=== PATIENT | male | born 1970 | race Caucasian/White ===

== ENCOUNTER 2017-10-16 12:18 | Inpatient (IN) | payer SELFPAY ==
[2017-10-16] MEDS ORDERED: Sodium Chloride 0.9% 1,000 ML IV ONE (12:20)
[2017-10-16] MEDS ORDERED: Morphine 4 MG/ML Syringe IVPUSH ONE ×2 (12:20→23:51)
[2017-10-16] MEDS ORDERED: Ondansetron 4 MG/2 ML SDV IVPUSH ONE (12:20)
[2017-10-16] MEDS ORDERED: Morphine 4 MG/ML Syringe ONE (12:21)
[2017-10-16] MEDS ORDERED: Ondansetron 4 MG/2 ML SDV ONE (12:21)
[2017-10-16] MEDS ORDERED: Iopamidol 755 MG/ML 500 ML Multipack Bottle IVPUSH STA (12:27)
--- NOTE | 2017-10-16 12:27 | EDM.PDOC ---
ED HPI GENERAL MEDICAL PROBLEM - General Stated Complaint: WORK RELATED BACK INJURY Time Seen by Provider: 10/16/17 12:22 Source of Information: Reports: Patient History Limitations: Reports: No Limitations - History of Present Illness INITIAL COMMENTS - FREE TEXT/NARRATIVE: HISTORY AND PHYSICAL: History of present illness: Trauma alert was called upon arrival to the emergency department by triage. Patient presents to the emergency room by either vehicle with complaints of neck and right chest wall pain after falling approximately 10 feet off of a roof. States he landed on his right side but did not lose consciousness. He says witnessed by a coworker whom confirms that. The coworker states that the patient did appear confused was able to get up from the ground with assistance and ambulate to the vehicle. Upon arrival the patient does have a c-collar which was applied by the triage nurse. The patient refuses to lie flat on the cot and is sitting in a high Gutierrez position. Patient is alert and oriented. Complains of right chest wall pain, stating "I punctured my lung... I have broken ribs". Patient is able to breathe easily and the high Gutierrez position, states that it hurts to take a deep breath and "I can't breathe off the right side". Review of systems: As per history of present illness and below otherwise all systems reviewed and negative. Past medical history: As per history of present illness and as reviewed below otherwise noncontributory. Surgical history: As per history of present illness and as reviewed below otherwise noncontributory. Social history: No reported history of drug or alcohol abuse. Family history: As per history of present illness and as reviewed below otherwise noncontributory. Physical exam: Gen.: Well-developed and well-nourished 46-year-old male. Alert and oriented. Speaking in full sentences. Appears in mild distress, though nontoxic-appearing. HEENT: Normocephalic, pupils are 3 mm bilaterally and reactive to light, negative for conjunctival pallor or scleral icterus, mucous membranes moist and intact, throat clear, neck supple, no lymphadenopathy, mild tenderness to C- spine upon palpation, trachea midline. C-collar is on. Crepitus or discomfort when palpating the scalp. Skin is intact. Lungs: Diminished to right lower quadrant, chest wall tenderness to the right antecubital/anterior posterior wall. Healed linear scars noted to the right chest wall Heart: S1S2, regular rate and rhythm with no overt murmurs. Abdomen: Soft, nondistended, nontender. Negative for masses or hepatosplenomegaly. Negative for costovertebral tenderness. Long linear scar noted above the right hip. Pelvis: Stable nontender. Genitourinary: Deferred. Rectal: Good rectal tone (done with a location manager) Back: Mild cervical tenderness with palpation (c-collar on), no pin point vertebral tenderness, crepitus, obvious deformities or step-offs to the cervical spine or back. Extremities: Moves all extremities per self, pain with range of motion and palpation of the right shoulder and right hip, denies any numbness or tingling to the upper or lower extremities, strong radial and pedal pulses bilaterally, Neurovascular unremarkable. Skin: Intact, warm, dry. No rashes or lesions noted. Neuro: Awake, alert, oriented. Cranial nerves II through XII unremarkable. Cerebellum unremarkable. Motor and sensory unremarkable throughout. Exam nonfocal. Patient was able to lay in a supine position with assistance of staff. Patient states that it was "pulling on" his right chest wall. Vital signs remained stable. Oxygen saturation is 96% on room air. Nursing staff is accompanying the patient for going down to CT at this time. 1310- Cervical spine shows mild degenerative changes, no acute fractures. Head CT is normal. C-collar was removed at this time. 1320- CT of the chest and abdomen show a pulmonary contusion with minimal right- sided pneumothorax. There are nondisplaced rib fractures on the right side rib # 2 through #9. No evidence of solid organ injury. 1327- Dr. Caicedo was consulted at this time. Diagnostics: CBC, CMP, UA, CT head, CT cervical spine, CT chest with contrast, CT abdomen and pelvis with contrast, x-ray right shoulder Therapeutics: IV fluid, Zofran, morphine, toradol Impression: #1 Traumatic fall #2 Right-sided nondisplaced rib fractures #3 Minimal sided pneumothorax #4 Chest wall contusion Plan: 1. Admit for observation under Dr. Caicedo. Definitive disposition and diagnosis as appropriate pending reevaluation and review of above. Onset: Today Duration: Minutes: Location: Reports: Neck, Chest, Upper Extremity, Right, Lower Extremity, Right Improves with: Reports: Other (Sitting in high Gutierrez's position, shallow breathing) Worsens with: Reports: Breathing (Deep breaths), Movement Neck/Back/Right Shoulder Pain Score (Numeric/FACES): 4 - Related Data Allergies Allergy/AdvReac Type Severity Reaction Status Date / Time No Known Allergies Allergy Verified 10/16/17 13:09 Home Meds: Home Meds . [No Known Home Meds] 10/16/17 [History] Review of Systems - Review of Systems Review Of Systems: ROS reveals no pertinent complaints other than HPI. ED EXAM, GENERAL - Physical Exam Exam: See Below (See dictation) Course - Vital Signs Last Recorded V/S: Last Vital Signs Temp 97.0 F 10/16/17 12:18 Pulse 73 10/16/17 14:35 Resp 22 H 10/16/17 14:35 BP 140/71 10/16/17 14:35 Pulse Ox 98 10/16/17 14:35 - Orders/Labs/Meds Orders: Active Orders 24 hr Category Date Time Status Admission Status [Patient Status] [ADT] Stat ADT 10/16/17 13:13 Active Labs: Laboratory Tests 10/16/17 10/16/17 10/16/17 Range/Units 12:20 12:20 14:27 WBC 8.12 (4.0-11.0) K/uL RBC 5.46 (4.50-5.90) M/uL Hgb 17.0 (13.0-17.0) g/dL Hct 49.0 (38.0-50.0) % MCV 89.7 (80.0-98.0) fL MCH 31.1 (27.0-32.0) pg MCHC 34.7 (31.0-37.0) g/dL RDW Std Deviation 43.2 (28.0-62.0) fl RDW Coeff of Ashvin 13 (11.0-15.0) % Plt Count 211 (150-400) K/uL MPV 10.20 (7.40-12.00) fL Neut % (Auto) 50.4 (48.0-80.0) % Lymph % (Auto) 40.0 (16.0-40.0) % [place] % (Auto) 6.9 (0.0-15.0) % Eos % (Auto) 2.2 (0.0-7.0) % Baso % (Auto) 0.5 (0.0-1.5) % Neut # (Auto) 4.1 (1.4-5.7) K/uL Lymph # (Auto) 3.3 H (0.6-2.4) K/uL Atlantic # (Auto) 0.6 (0.0-0.8) K/uL Eos # (Auto) 0.2 (0.0-0.7) K/uL Baso # (Auto) 0.0 (0.0-0.1) K/uL Nucleated RBC % 0.0 /100WBC Nucleated RBCs # 0 K/uL Sodium 137 (136-146) mmol/L Potassium 4.3 (3.5-5.1) mmol/L Chloride 103 (98-110) mmol/L Carbon Dioxide 22 (21-31) mmol/L BUN 16 (6.0-23.0) mg/dL Creatinine 0.9 (0.6-1.5) mg/dL Est Cr Clr Drug Dosing TNP Estimated GFR (MDRD) > 60.0 ml/min Glucose 120 H (60-110) mg/dL Calcium 9.4 (8.8-10.8) mg/dL Total Bilirubin 0.7 (0.1-1.5) mg/dL AST 80 H (5-40) IU/L ALT 80 H (8-54) IU/L Alkaline Phosphatase 61 (40-150) Total Protein 7.5 (6.0-8.0) g/dL Albumin 4.4 (3.5-5.0) g/dL Globulin 3.1 (2.0-3.5) g/dL Albumin/Globulin Ratio 1.4 (1.3-2.8) Urine Color YELLOW Urine Appearance CLEAR Urine pH 5.5 (5.0-8.0) Ur Specific [place] 1.020 (1.001-1.035) Urine Protein 30 (NEGATIVE) mg/dL Urine Glucose (UA) NEGATIVE (NEGATIVE) mg/dL Urine Ketones 15 H (NEGATIVE) mg/dL Urine Occult Blood TRACE-INTACT (NEGATIVE) Urine Nitrite NEGATIVE (NEGATIVE) Urine Bilirubin NEGATIVE (NEGATIVE) Urine Urobilinogen 0.2 (<2.0) EU/dL Ur Leukocyte Esterase NEGATIVE (NEGATIVE) Urine RBC 0-1 (0-2/HPF) Urine WBC 0-1 (0-5/HPF) Ur Epithelial Cells RARE (NONE-FEW) Urine Bacteria RARE (NEGATIVE) Meds: Medications Discontinued Medications Generic Name Dose Route Start Last Admin Trade Name Nat PRN Reason Stop Dose Admin Sodium Chloride 1,000 mls @ 999 mls/hr 10/16/17 12:20 Normal Saline IV 10/16/17 13:20 STAT ONE Iopamidol 100 ml 10/16/17 12:27 10/16/17 12:42 Isovue Multipack-370 (76%) IVPUSH 10/16/17 12:28 100 ml ONETIME STA Administration Ketorolac Tromethamine 30 mg 10/16/17 13:02 Toradol IVPUSH 10/16/17 13:03 ONETIME ONE Morphine Sulfate 4 mg 10/16/17 12:20 Morphine IVPUSH 10/16/17 12:21 ONETIME ONE Morphine Sulfate Confirm 10/16/17 12:21 Morphine Administered 10/16/17 12:22 Dose 4 mg .ROUTE .STK-MED ONE Ondansetron HCl 4 mg 10/16/17 12:20 Zofran IVPUSH 10/16/17 12:21 ONETIME ONE Ondansetron HCl Confirm 10/16/17 12:21 Zofran Administered 10/16/17 12:22 Dose 4 mg .ROUTE .STK-MED ONE Departure - Departure Time of Disposition: 15:18 Disposition: Refer to Observation Clinical Impression: Pneumothorax, right, Trauma Ribs, multiple fractures Qualifiers: Encounter type: initial encounter Fracture type: closed Laterality: right Qualified Code(s): S22.41XA - Multiple fractures of ribs, right side, initial encounter for closed fracture Contusion Qualifiers: Encounter type: initial encounter Contusion area: thoracic wall Contusion of thoracic wall detail: unspecified area of thoracic wall Qualified Code(s): S20.20XA - Contusion of thorax, unspecified, initial encounter - Discharge Information - My Orders Last 24 Hours: My Active Orders 10/16/17 13:13 Admission Status [Patient Status] [ADT] Stat - Assessment/Plan Last 24 Hours: My Active Orders 10/16/17 13:13 Admission Status [Patient Status] [ADT] Stat
[2017-10-16] MEDS ORDERED: Ketorolac 30 MG/ML SDV IVPUSH ONE (13:02)
--- NOTE | 2017-10-16 13:02 | CT ---
EXAMINATION: Non contrast CT head. Coronal and sagittal reformats. HISTORY: Pain FINDINGS: No evidence of intra or extra axial hemorrhage, mass, midline shift, hydrocephalus or edema. No hypoattenuation changes in the major vascular territories to suggest acute infarct. No abnormal intracranial calcifications are detected. No evidence of substantial vascular calcificat ions. There is mucosal thickening and small mucous retention cysts within the maxillary sinuses. Mastoid ai r cells are clear. The orbits and globes are symmetric. Pituitary fossa appears unremarkable. Calvarium is intact. No evidence of skull fracture. IMPRESSION: No acute intracranial findings.
[2017-10-16 13:04] LABS: CHLORIDE,CL 103 mmol/L (98-110); SODIUM,NA 137 mmol/L (136-146)
--- NOTE | 2017-10-16 13:05 | CT ---
EXAMINATION: CT cervical spine HISTORY: Pain COMPARISON: None TECHNIQUE: Axial CT images obtained through the cervical spine without contrast. Coronal and sagittal reconstructions obtained. FINDINGS: The cervical spinal alignment is normal. The vertebral body heights and disc spaces appear well-maintained. There is no fracture or dislocation. Bone mineralization appears normal. Mild margin al osteophytes noted. The prevertebral soft tissues are normal. Visualized lung apices are clear. IMPRESSION: 1. Mild degenerative changes without acute findings.
--- NOTE | 2017-10-16 13:19 | CT ---
CT of the chest, abdomen and pelvis with contrast. HISTORY: Pain TECHNIQUE: Axial CT images were obtained of the chest, abdomen and pelvis following administration of 100 mL of Isovue-370 in left antecubital fossa without complication. Coronal and sagittal reconstruc tions obtained. FINDINGS: Chest: There is a minimal right-sided pneumothorax with a few nondisplaced right rib fractures extend ing from at least the second through ninth right ribs. Mild groundglass opacities noted along the rig ht posterior pleural surface, likely a minimal pulmonary contusion. No evidence of a significant pleu ral effusion. The heart is normal in size without a pericardial effusion. Thoracic aorta is normal in caliber. The main pulmonary arteries are patent. Small subcutaneous hematoma noted extending from th e right axillary region and to the subclavian region. Central airways are clear. Abdomen: Trace focal fatty infiltration near the falciform ligament otherwise the liver appears intac t. The gallbladder, adrenal glands, and pancreas appear normal. Cholecystectomy. No bulky retroperito jessi lymphadenopathy or abdominal ascites. The kidneys enhance and function symmetrically without evidence of obstructive uropathy. Pelvis: The large and small bowel are normal in caliber without evidence of obstruction. No focal per icolonic inflammation or stranding. The appendix is normal. No significant free pelvic fluid. The uri nary bladder is normal. Motion obscures evaluation of the pelvis. Probable old medial left clavicle fracture changes. The right third fourth ribs are also fractured po steriorly. The thoracic and lumbar vertebra appear intact. IMPRESSION: 1. Multiple nondisplaced right-sided rib fractures noted with a minimal right pneumothorax. 2. Trace right pulmonary contusion. 3. No evidence of a solid organ injury within the abdomen or pelvis.
[2017-10-16] MEDS ORDERED: Acetaminophen 325 MG Tab PO PRN (15:35)
[2017-10-16] MEDS: HYDROmorphone 2 MG Tab PO PRN ×2 (16:03→19:18)
[2017-10-16] MEDS: Lactated Ringers 1,000 ML IV SCH (16:04)
[2017-10-16] MEDS: Acetaminophen/oxyCODONE 325-5 MG Tab PO PRN (21:56)
[2017-10-16] MEDS ORDERED: Lidocaine 2% 5 ML SDV ONE (23:33)
--- NOTE | 2017-10-16 23:42 | PCM.SN ---
- Free Text/Narrative Note: repeat cxr, and chest ct, R side ptx increased in size, and pt co difficult to breath and shallow breathing, and now there is subcutaneous emphasema; d/w pt, would put in a chest tube to the right; r/b dw pt, pt concurs and proceed; consent in chart
[2017-10-16] MEDS ORDERED: Morphine 10 MG/ML Syringe ONE (23:55)
[2017-10-17] MEDS ORDERED: Morphine 10 MG/ML Syringe IVPUSH ONE
[2017-10-17] MEDS ORDERED: Lidocaine 1% with EPINEPHrine 1:100,000 10 ML MDV INJECT ONE
[2017-10-17] MEDS ORDERED: Morphine 2 MG/ML Syringe IVPUSH ONE ×2 (00:30→04:29)
[2017-10-17] MEDS ORDERED: Morphine 4 MG/ML Syringe IVPUSH ONE (00:30)
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
--- NOTE | 2017-10-17 02:22 | PCM.OPNOTE ---
- General Post-Op/Procedure Note Date of Surgery/Procedure: 10/17/17 Operative Procedure(s): chest tube inserted r chest Findings: 60 cc dark blood evacuated; cxr trace ptx, and ct pending; [id number] Pre Op Diagnosis: r ptx Post-Op Diagnosis: Same Primary Surgeon: Brigido Caicedo Complications: None Condition: Good
[2017-10-17] MEDS: HYDROmorphone 2 MG Tab PO PRN ×2 (03:00→08:23)
--- NOTE | 2017-10-17 03:42 | OR ---
SURGEON: Brigido Caicedo MD DATE OF PROCEDURE: 10/17/2017 PREOPERATIVE DIAGNOSIS: Right-sided pneumothorax. POSTOPERATIVE DIAGNOSIS: Right-sided pneumothorax. PROCEDURE PERFORMED: Chest tube placement to the right and 20-Khmer chest tube was placed. PROCEDURE IN DETAIL: The patient's procedure was performed in ICU with conscious sedation. After informed consent obtained and the patient was slightly rotated to the left decubitus position, left-side down and right-side up, local anesthetic was given, and also IV morphine was administered and using palpation of the rib on the nipple level on the midaxillary line was used and after giving local anesthetic, using an #11 blade, incision was made, and followed with placement of the 28-Khmer chest tube into the pleural cavity. Encountered large hematoma probably from the broken rib and also large of the patient's body habitus and it is almost like a 1-inch or more of subcutaneous tissue. Once the tube was in, the anchor was secured to the skin using a 2-0 silk and the appropriate dressing was given and the patient was then waiting for the post chest x-ray. IAIN / PARADISE /[id number]
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
[2017-10-17] MEDS: Acetaminophen/oxyCODONE 325-5 MG Tab PO PRN ×2 (05:40→10:32)
[2017-10-17] MEDS ORDERED: Morphine 2 MG/ML Syringe IVPUSH PRN (06:04)
[2017-10-17] MEDS: Lactated Ringers 1,000 ML IV SCH (08:25)
[2017-10-17] MEDS ORDERED: Pantoprazole 40 MG Vial IVPUSH ONE (09:14)
--- NOTE | 2017-10-17 10:02 | CR ---
EXAMINATION: Two-view chest (PA and Lateral views). HISTORY: Follow-up. FINDINGS: The trachea is midline. There is a right-sided chest tube noted with tip in fairly stable position wi thin the mid chest. There is made decreasing right-sided pneumothorax now measuring 9 mm at the apex. Atelectasis is noted bilaterally. Previously described rib fractures are not well characterized. Osseous structures otherwise appear unremarkable. IMPRESSION: 1. Right-sided chest tube in grossly stable positioning with right apical pneumothorax.
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
--- NOTE | 2017-10-17 11:38 | CR ---
EXAM DATE: 10/17/17 PATIENT'S AGE: 46 Patient: SUHAIL NUNO Facility: [place], [place] Site . Site : 1970 Study: XRay Chest [id number]/13/2017 12:54:41 AM Ordering Physician: Marifer Fofana Final Report: INDICATION: Status post chest tube placement. TECHNIQUE: Chest radiograph 1 view COMPARISON: 10/16/2017 FINDINGS: Mediastinum: The heart silhouette is normal in size and morphology. The mediastinum is normal in appearance. A right basilar chest tube is noted with surrounding ground glass opacities which may be due to atelectasis or contusion. Lungs: Small lung volumes noted with small bibasilar atelectasis. No sign of pleural effusion seen. There is a trace lateral right pneumothorax present. Bones and soft tissue: Unremarkable for age. IMPRESSION: 1. There is a trace lateral right pneumothorax present. Dictated by Bryan Voss MD @ 10/17/2017 12:58:15 AM Dictated by: Bryan Voss MD @ 10/17/2017 00:58:19 (Electronic Signature) Report Signed by Proxy. [facility]
--- NOTE | 2017-10-17 11:39 | CT ---
EXAM DATE: 10/17/17 PATIENT'S AGE: 46 Patient: SUHAIL NUNO Facility: [place], [place] Site . Site : 1970 Study: CT Chest [id number]/13/2017 2:23:40 AM Ordering Physician: Marifer Fofana Final Report: INDICATION: Followup chest tube insertion. TECHNIQUE: CT chest without contrast. COMPARISON: Chest CT dated 10/16/2017. FINDINGS: Cardiovascular structures: Heart size is normal. Thoracic aorta and main pulmonary artery are normal in caliber. Mediastinum and denton: No sign of mass or adenopathy. Lungs: Interval placement of right chest tube, located in the right upper lobe just lateral to the right heart border on series 6, image 45. Increased bibasilar atelectasis. Pleura and pericardium: Interval enlargement of right pneumothorax from earlier chest CT. Anterior pleural separation measures approximately 1.7 centimeters. Interval development of trace bilateral pleural effusions. Chest wall and axilla: Increased subcutaneous emphysema in the lateral right chest wall. Likely small right axillary hematoma. Upper abdomen: Unremarkable. Gallbladder surgically absent. Bones: Multiple nondisplaced right rib fracture deformities. IMPRESSION: 1. Interval placement of right chest tube with enlargement of right pneumothorax from earlier chest CT on 10/16/2017. No mediastinal shift. 2. Increased bibasilar atelectasis with interval development of trace bilateral pleural effusions. 3. Small right axillary hematoma. Dictated by Tyrone Cerda MD @ 10/17/2017 2:51:42 AM Dictated by: Tyrone Cerda MD @ 10/17/2017 02:51:50 ----- ADDENDUM ----- ADDENDUM: 1. Images reviewed and discussed with Dr. Taveras (Surgery) via telephone on 2016 at 3:00am. Right chest tube likely in lung parenchyma with increased size of right pneumothorax from earlier chest CT. Dictated by Tyrone Cerda MD @ Oct 17 2017 3:06AM (Electronic Signature) Report Signed by Proxy. [facility]
--- NOTE | 2017-10-17 11:40 | CR ---
EXAM DATE: 10/17/17 PATIENT'S AGE: 46 Patient: SUHAIL NUNO Facility: [place], [place] Site . Site : 1970 Study: XRay Chest [id number]/13/2017 4:58:21 AM Ordering Physician: Marifer Fofana Final Report: INDICATION: Followup pneumothorax. TECHNIQUE: Chest radiograph 1 view COMPARISON: 10/17/2017 at 12:45 a.m. FINDINGS: Portable AP chest dated 10/17/2017 at 4:42 a.m. Right chest tube has been retracted slightly from the right hilum. Interval enlargement of right pneumothorax, pleural separation at the right lung apex 13 millimeters. No mediastinal shift. Patchy opacities at the right lung base, grossly unchanged. Lung markings of the left leilani thorax stable. IMPRESSION: 1. Slight interval repositioning of right chest tube. Interval enlargement of right pneumothorax. Dictated by Tyrone Cerda MD @ 10/17/2017 5:00:46 AM Dictated by: Tyrone Cerda MD @ 10/17/2017 05:00:50 (Electronic Signature) Report Signed by Proxy. [facility]
== END 2017-10-17 10:30 | DRG 200 ==
LOC: MW.ED 12:18 → MW.MS 15:27 → OBSVTOIN 10-17 → MW.ICU 10-17 00:45
PROVIDERS: ADMIT Surgery; ATTEND Surgery
PROC: 0W9900Z Drainage of Right Pleural Cavity with Drainage Device, Open Approach (ICD-10-PCS; principal; 2017-10-17)
DX: S27.0XXA Traumatic pneumothorax, initial encounter (principal); S22.31XA Fracture of one rib, right side, initial encounter for closed fracture; W13.2XXA Fall from, out of or through roof, initial encounter; S20.211A Contusion of right front wall of thorax, initial encounter
CPT/HCPCS: 36415; 70450; 70450-26; 71010; 71010-26; 71020; 71020-26; 71250; 71250-26; 71260; 71260-26; 72125; 72125-26; 73030-26-RT; 73030-RT; 74177; 74177-26; 80053; 81001; 85025; 96361; 96374; 96375; 96376; 99284; 99285-25; A9270-GY; C9113; G0378; G0390; J1885; J2270; J2405; J7040; J7120; Q9967

== ENCOUNTER 2018-04-20 23:48 | Emergency (ER) | payer SELFPAY ==
[2018-04-21] MEDS ORDERED: Proparacaine 0.5% Ophth Soln 15 ML Bottle EYEBOTH STA (00:41)
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
[2018-04-21] MEDS ORDERED: Erythromycin Base 0.5% Ophth Oint 1 GM Tube EYEBOTH ONE (02:49)
== END 2018-04-21 03:00 | disposition home or self-care (01) ==
LOC: MW.ED 23:48
DX: T15.01XA Foreign body in cornea, right eye, initial encounter (principal)
CPT/HCPCS: 99283; A9270

== ENCOUNTER 2018-06-24 14:30 | Emergency (ER) | payer SELFPAY ==
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
[2018-06-24] MEDS ORDERED: Metoclopramide 10 MG/2 ML SDV IV ONE (14:55)
[2018-06-24] MEDS ORDERED: diphenhydrAMINE 50 MG/ML SDV IVPUSH ONE (14:55)
[2018-06-24] MEDS ORDERED: Sodium Chloride 0.9% 1,000 ML IV ONE (14:55)
[2018-06-24] MEDS ORDERED: Ondansetron 4 MG/2 ML SDV IVPUSH ONE (14:55)
[2018-06-24] MEDS ORDERED: Ketorolac 30 MG/ML SDV IVPUSH ONE (14:55)
[2018-06-24] MEDS ORDERED: Iopamidol 755 MG/ML 500 ML Multipack Bottle IVPUSH STA (15:38)
[2018-06-24 16:01] LABS: CHLORIDE,CL 102 mmol/L (98-107); SODIUM,NA 134 mmol/L (136-148)
--- NOTE | 2018-06-24 18:18 | CR ---
EXAM DATE: 06/24/18 PATIENT'S AGE: 47 Patient: SUHAIL NUNO Facility: [place], [place] Site . Site : 1970 Study: XRay Chest [id number]/20/2018 3:55:35 PM Ordering Physician: Doctor Babcock Final Report: INDICATION: Hypertension with headache TECHNIQUE: Chest radiograph 1 view COMPARISON: 10/17/2017 FINDINGS: Mediastinum: The mediastinum is normal in appearance. The heart silhouette is normal in size and morphology. Lung: Both lungs are unremarkable in appearance. A small ill-defined density seen in the right lateral lung base, likely an area of mild pleural scarring. No sign of pleural effusion seen. No pneumothorax is identified. Musculoskeletal: Unremarkable for age. IMPRESSION: 1. No acute cardiopulmonary disease is seen. Dictated by Bryan Voss MD @ 06/24/2018 4:16:48 PM Dictated by: Bryan Voss MD @ 06/24/2018 16:18:13 (Electronic Signature) Report Signed by Proxy. [facility]
== END 2018-06-24 17:00 | disposition left against medical advice (07) ==
LOC: MW.ED 14:30
DX: R51 Headache (principal); F17.210 Nicotine dependence, cigarettes, uncomplicated
CPT/HCPCS: 36415; 71045; 80053; 84484; 85025; 93005; 96361; 96374; 96375; 99285; J1200; J1885; J2405; J2765; J7040